=== PATIENT | female | born 2000 | race Caucasian/White ===

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

== ENCOUNTER 2021-01-16 01:05 | Day surgery (SDC) | payer OTHER, SELFPAY ==
--- NOTE | 2021-01-10 13:53 | PC.NURSE ---
Report to the Outpatient Waiting Room, entrance under the green pavilion located off [facility], at time 0700____ on date 01/16/21 . OR Time: __09 . - You and your visitor will be asked a series of questions to screen for COVID 19 for your protection. - A mask is required within the hospital. - Only one visitor is allowed at this time. Patient visitors will be guided where to wait when not with patient. Preoperative COVID Testing Requirements: No COVID Test needed if: (proof is required; if not received patient will have Rapid Test prior to entry) - Patient has received COVID Vaccine at least 14 days prior to procedure date or - Patient has positive COVID test result within last 90 days of surgery date. COVID Test needed if above criteria is not met If not COVID vaccinated a COVID test must be conducted within 72 hours of surgery and patient is asked to isolate self from time of testing until procedure. You will go to the [facility] for your COVID testing. The [facility] site is located at the corner of [address] [facility]. You will only be called if COVID results are positive and your surgeon may reschedule your elective surgery date. Patients may have clear liquids (water, carbonated beverages, clear teas, apple juice) until 3 hours prior to surgery with a maximum of 20 ounces. - No food from midnight until time of surgery - Infants may have breast milk until 4 hours before surgery, infant formula 6 hours prior to surgery. - Children will be allowed to drink immediately following surgery. If applicable, please bring a bottle or sippy cup to assist with drinking. Juice, water, soda, and popsicles are readily available. For infants on formula, please bring formula the day of surgery. Pacifiers are allowed. Take the following medications with a SIP of water the morning of surgery: NONE Medications to discontinue per physician STOP IBUPROFEN 3 DAYS PRIOR TO SURGERY Date to take last dose Please no make-up, nail indian, hairspray, perfume, deodorant, or body powder the day of surgery. No jewelry (including any body piercings) or valuables the day of surgery, leave them at home. Please take a shower or bath the night before, or the morning of, surgery with an antibacterial soap. Wear comfortable, loose fitting clothing. Children are encouraged to wear pajamas. - Jewelry must be removed prior to entering the operating room. Rings and piercings that are not removed may be cut off. - The hospital will not accept responsibility for valuables. - Please leave all valuables, including medications, at home the day of surgery. If you are going home after surgery, a licensed delivery route driver must drive you home. - NO public transportation without another adult. - We recommend that an adult stay with you for 24 hours following discharge. - We also recommend that you do not drive, make important decision, drink alcoholic beverages, or take any drugs that were not prescribed by your health care provider for at least 24 hours after your discharge time. For Pediatric surgeries, we recommend two adults accompany the child home (only one inside the building at this time). Follow any additional instructions given to you from your surgeon. Telephone instructions given to ___PATIENT and asked if any additional questions and then verbalized understanding. Patient advised to call surgeon office or pre surgery nurse liaison [phone] if any additional questions.
[2021-01-10 14:01] VITALS: BMI 29.5
--- NOTE | 2021-01-15 13:45 | WPDANESEPPF ---
Anes - Initial Pre Proc Eval Procedure: Operation Date: 01/16/21 09:00 Proposed Procedures p Tonsillectomy - Ken Gonzalez MD Date/Time: 01/15/21 13:45 Surgeon: Ken Gonzalez MD Pre Op Diagnosis: chronic tonsillitis Patient Data Age: 20 Gender: F Height: 1.73 m Weight: 88 kg Allergies Allergy/AdvReac Type Severity Reaction Status Date / Time No Known Allergies Allergy Verified 01/16/21 07:11 Home Medications Medication Instructions Recorded Confirmed Type No Home Medications 01/10/21 01/16/21 History Patient hx anesthesia problems: none Family hx anesthesia problems: none Results Review: All pre-operative results and documents have been reviewed as part of the pre-operative evaluation. [facility] Past Medical History Medical History (Updated 01/16/21 @ 07:57 by Jovi Trammell MD) Asthma sports induced Obesity Strep pharyngitis Surgical History Surgical History Hx of tonsillectomy Family History Family History Grandparent Diabetes mellitus Heart disease Social History Social History Years smoked: 2 Smoking status: Current every day smoker Tobacco type: e-cigarettes/vaping Second hand tobacco smoke exposure: No Alcohol intake: current Drinks per week: 4 Alcohol use details: SOCIALLY Substance use: never Substance use type: does not use Living arrangements: with family Gender identity (if verbalized by the patient): Female Spiritual care concerns: No Anes - Eval Final PreProcedure Day of Procedure 01/15/21 13:45 Patient weight: overweight Heart: regular rate and rhythm Lungs: clear to auscultation and normal air movement Airway: Mallampati scale class II Neurological: alert and oriented Last oral intake: >/= 8 hours ASA classification: II Emergent: no Anesthetic plan: proceed Anesthesia type and monitoring: general ETT Results Review: All pre-operative results and documents have been reviewed as part of the pre-operative evaluation. Informed Consent: The patient's anesthetic plan and its attendant risks and benefits were discussed with the patient/family/POA. Questions were solicited and answers provided to the satisfaction of the patient/family/POA.
[2021-01-16] VITALS (8 sets, daily range): BP systolic 104–123; BP diastolic 53–74; PULSE 55–80; RESP 11–16; TEMP 36.2–36.5; O2SAT 95–100
--- NOTE | 2021-01-16 05:44 | PM.HPGS ---
History of Present Illness History of Present Illness Consent: Risks, benefits, and alternatives have been discussed and questions answered. Patient agrees to proceed with procedure. Chief complaint: chronic tonsillitis Narrative: Roxanne Starks is a 20 year old female with recurring episodes of tonsillitis treated with various courses of antibiotics Review of Systems Review of Systems: All systems reviewed & are unremarkable except as noted in HPI and below PMFSH Past Medical History Medical History Asthma sports induced Overweight (BMI 25.0-29.9) Strep pharyngitis Surgical History Surgical History Hx of tonsillectomy Family History Family History Grandparent Diabetes mellitus Heart disease Social History Social History Years smoked: 2 Smoking status: Current every day smoker Tobacco type: e-cigarettes/vaping Second hand tobacco smoke exposure: No Alcohol intake: current Drinks per week: 4 Alcohol use details: SOCIALLY Substance use: never Substance use type: does not use Living arrangements: with family Gender identity (if verbalized by the patient): Female Spiritual care concerns: No Meds Home Medications and Allergies Home Medications Medication Instructions Recorded Confirmed Type No Home Medications 01/10/21 01/10/21 History Allergies Allergy/AdvReac Type Severity Reaction Status Date / Time No Known Allergies Allergy Verified 01/10/21 13:47 Exam Narrative: Chest clear heart without murmurs abdomen soft -3+ tonsils Assessment and Plan Additional Plan Plan is a tonsillectomy
--- NOTE | 2021-01-16 05:46 | WPDHPUPDATE1 ---
History and Physical Update Update Date/Time: 01/16/21 05:46 History and Physical has been reviewed, including an updated exam of the patient. There are NO changes in the patient's condition. Risks, benefits, and alternatives have been discussed and questions answered. Patient agrees to proceed with procedure.
[2021-01-16] MEDS: ACETAMINOPHEN 500 MG TABLET 1000 MG PO (07:28)
[2021-01-16] MEDS: LACTATED RINGERS 1,000 ML 30 ML IV CONT ×2 (07:46→09:46)
--- NOTE | 2021-01-16 09:09 | W.PM.PROC2 ---
Procedure Note - Detailed Date of Procedure 01/16/21 Pre-op Diagnosis chronic tonsillitis Post-op Diagnosis same Procedure Performed Tonsillectomy Surgeon Ken Gonzalez MD Anesthesia general Description of Procedure Patient was prepped and draped in usual fashion after induction of anesthesia. The McIvor mouth gag was inserted. The tonsils were removed dissection technique hemostasis was obtained electrocautery. The mouth was inspected for bleeding. When stabilized patient was awaken and brought to the recovery room in good condition. Drains No Packing No Pathology none sent Complications No immediate complications Condition stable Disposition PACU
[2021-01-16] MEDS: fentaNYL CITRATE INJ (*CRX) 100 MCG/2 ML VIAL 25 MCG IV PUSH ×5 (09:24→10:03)
[2021-01-16] MEDS: oxyCODONE HCL (*CRX) 5 MG TAB IR PO (10:42)
== END 2021-01-16 11:19 | disposition home or self-care (01) ==
PROVIDERS: PCP Pediatrics Adolescent Medicine; Visit Provider Otolaryngology
PROC: (CPT 42826; principal; 2021-01-16 09:00)
DX: J35.01 Chronic tonsillitis (principal); F17.290 Nicotine dependence, other tobacco product, uncomplicated
CPT/HCPCS: 42826; 88304; A9270; J0330; J1100; J1170; J2250; J2405; J2704; J3010; J7120

== ENCOUNTER 2021-03-29 15:51 | Emergency (ER) | payer OTHER, SELFPAY ==
[2021-03-29 16:12] VITALS: BP 126/70; PULSE 78; RESP 14; TEMP 36.7; O2SAT 100
--- NOTE | 2021-03-29 17:55 | ED.DIZZY ---
HPI - Dizziness General Chief Complaint: Dizziness Stated Complaint: tingly extremeties, dizzy Time Seen by Provider: 03/29/21 17:37 Source: patient and family Mode of arrival: ambulatory Limitations: no limitations History of Present Illness HPI Narrative: 20-year-old female Brought in by mom She has several somewhat vague complaints that have been going on for about a month She said shortly before that she had had her tonsils out but did not have any immediate problems from that She also had Covid but felt like her illness was mild and she only had symptoms for about 3 days However subsequently to that she is noticed problems with dizziness which she describes variously as feeling weak, feeling kind of offkilter, or feeling like she might faint She also complains of numb paresthesias which are intermittent in her hands and feet Additionally she is unusually fatigued She had a visit to [facility] yesterday and today, and had fasting labs done today, the only result that she knows of is that her blood sugar was 93 She was home today because she was having car problems and had an episode of weakness and dizziness while she was sitting on the sofa Related Data Allergies Allergy/AdvReac Type Severity Reaction Status Date / Time No Known Allergies Allergy Verified 01/30/21 14:56 Review of Systems Review of Systems: All systems reviewed & are unremarkable except as noted in HPI and below Constitutional: Constitutional: Reports no additional constitutional complaints, Denies chills, Reports fatigue, Denies fever(s), Denies headache(s) and Reports weakness Eyes: Eyes: Reports no additional eye complaints and Denies change in vision ENT: Denies headache(s), Denies nasal congestion and Denies sore throat Cardiovascular: Cardiovascular: Denies chest pain and Denies dyspnea Respiratory: Respiratory: Denies cough and Denies dyspnea Gastrointestinal: Gastrointestinal: Denies abdominal pain, Denies diarrhea and Denies vomiting Genitourinary: Genitourinary: Denies urinary frequency Musculoskeletal: Musculoskeletal: Reports myalgias, Denies deformity, Denies arthralgias, Denies joint swelling and Denies numbness Integumentary/Breasts: Skin/Breast: Denies rash and Denies wounds Neurologic: Reports dizziness, Denies headache(s), Denies focal weakness, Denies numbness and Reports weakness Psychiatric: Psychiatric: Reports no additional psychiatric complaints Endocrine: Endocrine: Reports no additional endocrine complaints and Reports fatigue Hematologic/Lymphatic: Hematologic/Lymphatic: Reports no additional hematologic/lymphatic complaints Allergic/Immunologic: Allergic/Immunologic: Reports no additional allergic/immunologic complaints PMF Past Medical History Medical History Asthma sports induced Obesity Strep pharyngitis Surgical History Surgical History Hx of tonsillectomy Family History Family History Grandparent Diabetes mellitus Heart disease Social History Social History Years smoked: 2 Tobacco type: e-cigarettes/vaping Second hand tobacco smoke exposure: No Alcohol intake: current Drinks per week: 4 Alcohol use details: SOCIALLY Substance use: never Substance use type: does not use Gender identity (if verbalized by the patient): Female Spiritual care concerns: No Exam Const: General: cooperative, healthy appearing, no acute distress and alert Orientation/consciousness: patient oriented x3 (alert) HENMT: Head: normal to inspection, normocephalic, atraumatic, no contusions and no hematomas Ears: external ears normal and TM's normal bilaterally General nose exam: no epistaxis Mouth: Yes moist mucous membranes Throat: posterior oropharynx nor
[2021-03-29 18:38] LABS: Basophils Percent Auto 0.3 % (0.2-1.2); Eosinophils Absolute Auto 0.2 K/mm3 (0-0.3); Eosinophils Percent Auto 2.1 % (0-4.4); Hemoglobin 14.2 g/dL (12.0-15.0); Immature Granulocyte Absolute 0.01 K/mm3 (0.00-0.031); Immature Granulocyte Percent A 0.1 % (0-0.5); Lymphocytes Absolute Auto 2.49 K/mm3 (0.9-3.2); Lymphocytes Percent Auto 34.8 % (18.3-44.2); Mean Corpuscular HGB Conc 33.8 g/dl (32-36); Mean Corpuscular Hemoglobin 30.9 pg (26-34); Mean Corpuscular Volume 91.3 fl (80-100); Mean Platelet Volume 11.7 fl (7.4-10.4); Monocytes Absolute Auto 0.6 K/mm3 (0.1-0.6); Monocytes Percent Auto 8.2 % (2.6-8.5); Neutrophils Absolute Auto 3.9 K/mm3 (1.3-6.7); Neutrophils Percent Auto 54.5 % (45.5-73.1); Platelet Count Result 261 k/mm3 (150-375); Red Cell Distribution Width 11.6 % (11.5-14.5); White Blood Count 7.2 K/mm3 (4.5-10.0)
[2021-03-29 18:49] LABS: Alanine Aminotransferase 17 U/L (4-35); Albumin Level 5.1 g/dL (3.7-5.6); Alkaline Phosphatase 93 U/L (45-116); Anion Gap 10 mmol/L (8-16); Aspartate Amino Transferase 25 U/L (14-36); Bilirubin,Total 0.6 mg/dL (0.2-1.3); Blood Urea Nitrogen 9 mg/dL (8-21); Calcium 9.8 mg/dL (8.9-10.7); Carbon Dioxide 25 mmol/L (22-30); Chloride 106 mmol/L (98-107); Estimated CRCL calculation 128 ml/min; Estimated Glomerular Filt Rate > 60; Glucose 96 mg/dL (65-110); Sodium 141 mmol/L (134-143)
[2021-03-29 18:53] LABS: Monoscreen Negative (Negative); Negative Monotest Control Negative (Negative); Positive Monotest Control Positive (Positive)
[2021-03-29 19:06] LABS: Free T4 Free Thyroxine 1.15 ng/mL (0.78-2.19)
[2021-03-29 19:07] LABS: Erythrocyte Sedimentation Rate 10 mm/hr (0-20)
[2021-03-29 19:20] LABS: Thyroid Stimulating Hormone Reflex 0.589 uIU/mL (0.465-4.68)
[2021-03-29 19:32] VITALS: BP 119/68; PULSE 73; RESP 18; O2SAT 100
== END 2021-03-29 19:33 | disposition home or self-care (01) ==
PROVIDERS: Emergency Provider Emergency Medicine; PCP Pediatrics Adolescent Medicine
DX: R42 Dizziness and giddiness (principal); R20.2 Paresthesia of skin; F17.290 Nicotine dependence, other tobacco product, uncomplicated
CPT/HCPCS: 36415; 80053; 81025; 82607; 83735; 84439; 84443; 85025; 85652; 86308; 99283

== ENCOUNTER 2022-02-27 15:47 | Emergency (ER) | payer OTHER, SELFPAY ==
[2022-02-27 15:59] VITALS: BP 127/64; PULSE 101; RESP 16; TEMP 37.4; O2SAT 99
--- NOTE | 2022-02-27 16:22 | ED.URI ---
HPI - URI/Sore Throat General Chief Complaint: Upper Respiratory Infection Stated Complaint: sore throat Time Seen by Provider: 02/27/22 16:05 Source: patient Mode of arrival: ambulatory Limitations: no limitations History of Present Illness HPI Narrative: Wendi is a 21-year-old female patient presenting to the clinic today with complaints sore throat, fever, body aches, cough, nasal congestion, diarrhea,and headache x2 days. She denies any known exposure to anyone with COVID, flu, or strep MD elicited complaint: fever, cough, sore throat, nasal congestion and other ( headache, aches, chills) Related Data Home Medications Medication Instructions Recorded Confirmed drospirenone 3 mg-ethinyl 1 tablet DAILY 02/27/22 02/27/22 estradiol 0.02 mg tablet (Vestura ()) Allergies Allergy/AdvReac Type Severity Reaction Status Date / Time No Known Allergies Allergy Verified 01/30/21 14:56 Review of Systems Review of Systems: Pertinent positives per HPI. Patient denies any rash, visual changes, dizziness, shortness of breath, chest pain, palpitations, vomiting, constipation, abdominal pain, or any urinary issues. [facility] Past Medical History Medical History Asthma sports induced Obesity Strep pharyngitis Surgical History Surgical History Hx of tonsillectomy Family History Family History Grandparent Diabetes mellitus Heart disease Social History Social History Years smoked: 2 Tobacco type: e-cigarettes/vaping Second hand tobacco smoke exposure: No Alcohol intake: current Drinks per week: 4 Alcohol use details: SOCIALLY Substance use: never Substance use type: does not use Gender identity (if verbalized by the patient): Female Spiritual care concerns: No Comments At the time of my signature, I reviewed and agree with the nursing past medical, surgical, social, and family history. There is no relevant family history pertinent to the patient complaint. Exam Narrative: General: Well-developed, obese, in no apparent distress Head: Normocephalic, atraumatic Eyes: Pupils equally round and reactive to light bilaterally, EOM intact, sclera and conjunctive clear, no discharge, lids normal Ears: TMs intact and dull, ear canals clear, no drainage, grossly hearing normal. Nose: Nares patent, clear nasal discharge, no inflammation, no sinus tenderness. Mouth: Oral pharynx without lesions or masses, good dentition, MMM. oropharynx red, tonsils surgically absent Neck: Supple, trachea midline, mild enlargement of anterior or posterior cervical nodes, no thyroid masses or goiter palpable. Cardio: Regular rate and rhythm, s1 and s2 normal, no murmur appreciated. Resp: Clear to auscultation bilaterally, no rhonchi, rales, wheezing or rubs Course Course Emergency Course: Portions of this record may have been created with voice recognition software. Level of Care: Express Care Visit Vital Signs Vital signs: Vital Signs Temperature 37.4 C 02/27/22 15:59 Pulse Rate 101 H 02/27/22 15:59 Respiratory Rate 16 02/27/22 15:59 Blood Pressure 127/64 02/27/22 15:59 Pulse Oximetry 99 02/27/22 15:59 Oxygen Delivery Room Air 02/27/22 15:59 Temperature 37.4 C 02/27/22 15:59 Pulse Rate 101 H 02/27/22 15:59 Respiratory Rate 16 02/27/22 15:59 Blood Pressure 127/64 02/27/22 15:59 Pulse Oximetry 99 02/27/22 15:59 Oxygen Delivery Room Air 02/27/22 15:59 Vital signs reviewed MDM - URI/Sore Throat MDM Narrative Medical decision making narrative: at the time of visit patient is resting comfortably on the exam table. Testing for COVID, flu, and strep were performed. All testing was negative. I suspect patient has U
== END 2022-02-27 16:51 | disposition home or self-care (01) ==
PROVIDERS: Emergency Provider Nurse Practitioner Family; PCP Family Medicine Sports Medicine
DX: B34.9 Viral infection, unspecified (principal); J06.9 Acute upper respiratory infection, unspecified; J02.9 Acute pharyngitis, unspecified; F17.290 Nicotine dependence, other tobacco product, uncomplicated; Z20.822 Contact with and (suspected) exposure to COVID-19
CPT/HCPCS: 87426; 87804; 87880; 99213; C9803; G0463

== ENCOUNTER 2023-07-08 12:44 | Emergency (ER) | payer OTHER, SELFPAY ==
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
[2023-07-08 12:52] VITALS: BP 125/95; PULSE 94; RESP 18; TEMP 36.5; O2SAT 100
--- NOTE | 2023-07-08 12:56 | ED.LOWEXIN ---
HPI - Extremity Injury (Lower) General Chief Complaint: Extremity Injury, Lower Stated Complaint: Right Ankle Pain Time Seen by Provider: 07/08/23 12:50 Source: patient Mode of arrival: ambulatory Limitations: no limitations History of Present Illness HPI Narrative: Patient is a 23-year-old female who presents with right ankle pain after kicking shut a freezer door last night at work. Patient states she felt a pop. Denies any bruising, swelling. Patient is able to ambulate normally. Related Data Home Medications Medication Instructions Recorded Confirmed drospirenone 3 mg-ethinyl 1 tablet DAILY 02/27/22 07/08/23 estradiol 0.02 mg tablet (Vestura (28)) Allergies Allergy/AdvReac Type Severity Reaction Status Date / Time No Known Allergies Allergy Verified 07/08/23 12:48 Review of Systems Review of Systems: All systems reviewed & are unremarkable except as noted in HPI and below Constitutional: Constitutional: Denies body ache(s), Denies chills, Denies fatigue, Denies fever(s), Denies headache(s), Denies malaise and Denies weakness Eyes: Eyes: Denies blurry vision, Denies irritation and Denies loss of vision ENT: Denies otalgia, Denies headache(s), Denies nasal discharge, Denies sinus pain and Denies sore throat Cardiovascular: Cardiovascular: Denies chest pain, Denies irregular heart rhythm and Denies dyspnea Respiratory: Respiratory: Denies dyspnea Gastrointestinal: Gastrointestinal: Denies abdominal pain, Denies melena, Denies hematochezia, Denies diarrhea, Denies nausea and Denies vomiting Musculoskeletal: Musculoskeletal: Denies back pain, Denies myalgias and Reports arthralgias Integumentary/Breasts: Skin/Breast: Denies pruritus and Denies rash Neurologic: Denies headache(s), Denies loss of vision and Denies weakness Psychiatric: Psychiatric: Reports no additional psychiatric complaints Endocrine: Endocrine: Denies fatigue PMFSH Past Medical History Medical History Asthma sports induced Obesity Strep pharyngitis Surgical History Surgical History Hx of tonsillectomy Family History Family History Grandparent Diabetes mellitus Heart disease Social History Social History Years smoked: 2 Tobacco type: e-cigarettes/vaping Second hand tobacco smoke exposure: No Alcohol intake: current Drinks per week: 4 Alcohol use details: SOCIALLY Substance use: never Substance use type: does not use Living arrangements: with family Gender identity (if verbalized by the patient): Female Spiritual care concerns: No Comments At time of signature, agree with nursing past medical, surgical, social and family history. There is no relevant family history pertinent to the presenting complaint. Exam Const: General: cooperative, healthy appearing, comfortable, no acute distress and well nourished Nutritional Appearance: well nourished Orientation/consciousness: patient oriented x3 Limitations: no limitations HENMT: Head: normal to inspection, normocephalic and atraumatic Ears: hearing grossly normal bilaterally and external ears normal Face/Nose/Sinus: Normal external nose present, normal facial exam and face symmetric Face and sinus: normal facial exam and face symmetric Mouth: Yes lip normal Eyes: General: appearance normal, both eyes and all related structures Alignment and Position: alignment normal and position normal Periorbital: periorbital findings normal Eyelids: eyelids normal Pupils: Equal, round and reactive pupils present EOM: EOMs intact bilaterally Neck: Neck: normal visual inspection, full ROM and supple Chest: Chest palpation & inspection: normal inspection of the chest Resp: Effort & Inspection: normal respiratory effort and able
== END 2023-07-08 13:25 | disposition home or self-care (01) ==
PROVIDERS: Emergency Provider Nurse Practitioner Family; PCP Family Medicine Sports Medicine
DX: S93.401A Sprain of unspecified ligament of right ankle, initial encounter (principal); W22.09XA Striking against other stationary object, initial encounter
CPT/HCPCS: 73610; 99213; G0463

== ENCOUNTER 2024-08-30 12:40 | Emergency (ER) | payer OTHER, SELFPAY ==
--- NOTE | ~2024-08-30 | XR_ITS ---
XR abdomen obstructive series Ordering provider: Mike Crystal APRN History: . abd bloating, lower abdomen pain, hx SBO . Comparison: None. FINDINGS: BOWEL: Nonobstructive bowel gas pattern. ORGANOMEGALY: None. SIGNIFICANT PATHOLOGIC CALCIFICATIONS: None. OTHER: No free air is seen under the diaphragm. Fusion of the sacroiliac joints is noted. IMPRESSION: NO ACUTE ABDOMINAL FINDINGS. Reviewed, dictated and finalized at location A.
--- NOTE | 2024-08-30 12:41 | ED.ABDPAIN ---
HPI - Abdominal Pain General Chief Complaint: Abdominal Pain Stated Complaint: Lower Abdominal Pain Time Seen by Provider: 08/30/24 12:41 Source: patient Mode of arrival: ambulatory Limitations: no limitations History of Present Illness HPI narrative: Roxanne is a 24-year-old female patient presenting to the clinic today with complaints of lower abdominal pain and bloating x3-4 days. Pain is to the right lower abdomen/pelvic area. Rates pain a 3/10 currently and states it is dull in quality. She reports symptoms started after having vaginal intercourse. She is being worked up for PCOS- has not yet had an ultrasound. Does not have a regular menstrual cycle. Also reports nausea and nipple/breast sensitivity. Denies any nausea, vomiting, vaginal discharge, odor, urinary symptoms, or back pain. Last bowel movement was on Friday and normal for the patient. Symptoms feel similar to when she had SBO in the past. History of an appendectomy, cholecystectomy, tonsillectomy, and small bowel obstruction surgery. No concern for STI. Related Data Home Medications ?Medication ?Instructions ?Recorded ?Confirmed ?Last Taken ?Type drospirenone 3 mg-ethinyl 1 tablet PO DAILY 02/27/22 07/08/23 Unknown History estradiol 0.02 mg tablet (Vestura (28)) hydroxyzine HCl 25 mg tablet 25 mg PO TID PRN anxiety 08/30/24 Unknown History paroxetine HCl 10 mg tablet 10 mg PO QAM 08/30/24 Unknown History spironolactone 100 mg tablet 100 mg PO DAILY 08/30/24 Unknown History Allergies Allergy/AdvReac Type Severity Reaction Status Date / Time chlorhexidine Allergy Mild Rash Verified 08/30/24 13:04 Review of Systems Review of Systems: Pertinent positives per HPI. Patient denies any fever, chills, rash, headache, visual changes, dizziness, cough, runny nose, sore throat, shortness of breath, chest pain, palpitations, nausea, vomiting, diarrhea, constipation, or any urinary issues. [facility] Past Medical History Medical History Obesity Asthma sports induced Strep pharyngitis Surgical History Surgical History Hx of tonsillectomy Family History Family History Grandparent Diabetes mellitus Heart disease Social History Social History Years smoked: 2 Tobacco type: e-cigarettes/vaping Second hand tobacco smoke exposure: No Alcohol intake: current Drinks per week: 4 Alcohol use details: SOCIALLY Substance use: never Substance use type: does not use Living arrangements: with family Gender identity (if verbalized by the patient): Female Spiritual care concerns: No Comments At the time of my signature, I reviewed and agree with the nursing past medical, surgical, social, and family history. There is no relevant family history pertinent to the patient complaint. Exam Narrative: General: Well-developed, well nourished, in no apparent distress. Head: Normocephalic, atraumatic. Cardio: Regular rate and rhythm, s1 and s2 normal, no murmur appreciated. Resp: Clear to auscultation bilaterally, no rhonchi, rales, wheezing or rubs. Abdomen: Soft, pliable, bowel sounds present in all quadrants, right lower abdomen/adnexa tender to palpation, no organomegly, no CVAT tenderness. Course Course Emergency Course: Portions of this record may have been created with voice recognition software. Level of Care: Express Care Visit Vital Signs Vital signs: Vital Signs Temperature 36.4 C L 08/30/24 13:00 Pulse Rate 86 08/30/24 13:00 Respiratory Rate 18 08/30/24 13:00 Blood Pressure 114/56 L 08/30/24 13:00 Pulse Oximetry 100 08/30/24 13:00 Oxygen Delivery Room Air 08/30/24 13:00 Temperature 36.4 C L 08/30/24 13:00 Pulse Rate 86 08/30/24 13:00 Respiratory Rate 18 08/30/24 13:00 Blood Pressure 114/56 L 08/30/24 13:00 Pulse Oximetry 100 08/30/24 13:00 Oxygen Delivery Room Air 08/30/24 13:00 Vital signs reviewed MDM - Abdominal Pain MDM Narrative Medical decision making narrative: At the time of visit patient is resting comfortably on the exam table. Patient appears to be nontoxic. Labs: Bedside test was negative. Urinalysis negative for any sign of infection, blood, protein, nitrates, or ketones. Diagnostics: Abdomen x-ray obstructive series performed. Negative for any acute abdomen pathology. Patient does have a moderate amount of stool in her colon Plan: Patient is having right lower quadrant/adnexa pain. No sign of obstruction on x-ray. Has moderate amount of stool in the colon. Bedside is negative so differential diagnosis less likely for ectopic . Urinalysis non-infectious. Denies vaginal discharge, odor, or concern for STI. Cannot rule out ovarian cyst but less likely an ovarian torsion. Shared decision making performed: Offered to send patient to the ER for further evaluation and she declined at this time and would like to go home and follow-up with her PCP tomorrow-she already has a tele health appointment but they stated that they can change to a in-person appointment. I feel that this plan is appropriate at this time but recommend going to the emergency room for pelvic US if symptoms persist/worsen and she voiced understanding. Supportive measures were discussed with the patient and she voiced understanding discharge instructions and agrees to treatment plan. Return precautions reviewed Differential Diagnosis Differential diagnosis: Likely abdominal pain, calculus of kidney, constipation, diverticulitis, endometriosis, gastroenteritis, pancreatitis, small bowel obstruction and other (Ovarian cyst, ovarian torsion, colitis) Lab Data Labs: Lab Results 08/30/24 Range/Units 13:06 POC Urine Color Dark POC Urine Clarity Cloudy POC Urine pH 6.0 POC Ur Specif [place] 1.030 POC Urine Protein Negative (Negative) POC Ur Glucose (UA) Negative (Negative) POC Urine Ketones Negative (Negative) POC Urine Blood Negative (Negative) POC Urine Nitrite Negative (Negative) POC Urine Bilirubin Negative (Negative) POC Urine Urobilinogen 0.2 POC U Leukocyte Esteras Negative (Negative) POC Urine HCG, Qual Negative (Negative) Imaging Data Radiologist's impression: ITS Impressions Abdomen X-Ray 08/30/24 13:20 IMPRESSION: NO ACUTE ABDOMINAL FINDINGS. Discharge Plan Discharge Clinical Impression: Abdominal discomfort in right lower quadrant Patient Disposition: Home Condition: Stable Instructions: Antibiotic Form, Ovarian Cyst (ED), Abdominal Pain (ED) Additional Instructions: Offer to send you to the emergency room today for further evaluation and you declined at this time. You possibly have a right ovarian cyst-less probability of an ovarian torsion Bedside test is negative in the clinic today Urinalysis is negative for any sign of leukocytes, protein, nitrates, or blood. Abdominal obstruction series x-rays were negative for any acute abdomen pathology-you do have a lot of stool in your colon May take MiraLax daily to see if this improves her symptoms Increase fluids and stay well hydrated May take Tylenol/Motrin as needed for pain May apply heating pad to the area to help alleviate pain Follow-up with your PCP tomorrow as scheduled Recommend ultrasound to rule out ovarian cyst Patient Language: Macedonian Prescriptions: No Action hydroxyzine HCl 25 mg tablet 25 mg PO TID PRN (Reason: anxiety) spironolactone 100 mg tablet 100 mg PO DAILY paroxetine HCl 10 mg tablet 10 mg PO QAM drospirenone-ethinyl estradiol [Vestura (28)] 3-0.02 mg tablet 1 tablet PO DAILY Follow-up/Referrals: Mikel,ANN BurnsP [Primary Care Provider] - Time of Disposition: 13:42 Quality NIHSS Nursing Documentation ED NIHSS nursing documentation: reviewed/agree
[2024-08-30 13:00] VITALS: BP 114/56; PULSE 86; RESP 18; TEMP 36.4; O2SAT 100
[2024-08-30 13:12] LABS: BEDSIDEPREGUCG Negative (Negative)
[2024-08-30 13:15] LABS: EDUAAPPEAR Cloudy; EDUABILI Negative (Negative); EDUABLOOD Negative (Negative); EDUACOLOR1 Dark; EDUAGLUCOSE Negative (Negative); EDUAKETONE Negative (Negative); EDUALEUKO Negative (Negative); EDUANITRATE Negative (Negative); EDUAPROTEIN Negative (Negative); EDUAUROBILI 0.2
== END 2024-08-30 13:47 | disposition home or self-care (01) ==
PROVIDERS: Emergency Provider Nurse Practitioner Family; PCP Nurse Practitioner Family
DX: R10.31 Right lower quadrant pain (principal); F17.290 Nicotine dependence, other tobacco product, uncomplicated; J45.990 Exercise induced bronchospasm; E66.9 Obesity, unspecified; Z68.28 Body mass index [BMI] 28.0-28.9, adult
CPT/HCPCS: 74019; 81003; 81025; 99213; G0463